=== PATIENT | female | born 1940 | race African-American/Black ===

== ENCOUNTER 2021-12-27 14:52 | Inpatient (IN) | payer MEDICARE ==
[2021-12-27] MEDS ORDERED: Acetaminophen 325 MG TAB PO PRN (17:39)
[2021-12-27] MEDS ORDERED: Electrolyte Replacement Protocol 1 EACH FS SCH (18:00)
[2021-12-27 18:07] VITALS: BMI 15.8
[2021-12-27 18:19] LABS: Hemoglobin 9.9 g/dL (12.0-15.5)
[2021-12-27] MEDS: HYDROcodone/Acetaminophen 5/325 mg Tablet PO PRN (18:20)
[2021-12-27 18:29] LABS: INR-International Normal Ratio 1.9; Prothrombin Time 20.9 sec (9.5-12.1)
[2021-12-27] MEDS ORDERED: Magnesium 2 GM/50 ML 2 GM in Premix Bag 1 BAG IVPB SCH (20:00)
[2021-12-27] MEDS ORDERED: Potassium Chloride 20 MEQ TAB PO SCH (20:00)
[2021-12-27] MEDS: Morphine 4 MG/ML VIAL SLOW IVP PRN (20:07)
[2021-12-28 00:34] LABS: Hemoglobin 9.4 g/dL (12.0-15.5)
[2021-12-28 05:36] LABS: #Basophils 0.1 10x3/uL (0.0-0.2); #Eosinphils 0.3 10x3/uL (0.0-0.5); %Basophils 1.4 % (0.0-2.0); %Lymphocytes 21.9 % (18.0-47.0); %Monocytes 12.3 % (0.0-10.0); Hemoglobin 9.3 g/dL (12.0-15.5); Mean Corpuscular HGB CONC 31.8 g/dL (32.0-36.0); Mean Corpuscular Hemoglobin 29.9 pg (27.0-33.0); Mean Corpuscular Volume 93.9 fl (81.6-98.3); Mean Platelet Volume 10.8 fl (7.4-10.4); Platelet Count 205 10x3/uL (150-450); RBC Distribution Width 18.1 % (11.5-14.5); Red Blood Cell (RBC) Count 3.11 10x6/uL (3.90-5.03); White Blood Cell (WBC) Count 8.4 10x3/uL (3.5-10.5)
[2021-12-28 05:55] LABS: Anion Gap 10 mmol/L (10-20); BUN (Urea Nitrogen) 7 mg/dL (9.8-20.1); Calc. Creatinine Clearance 38 mL/min (70-130); Calcium 9.5 mg/dL (7.8-10.44); Carbon Dioxide 27 mmol/L (23-31); Chloride 109 mmol/L (98-107); Glucose 82 mg/dL (83-110); Phosphorus 2.5 mg/dL (2.3-4.7); Potassium 3.9 mmol/L (3.5-5.1); Sodium 142 mmol/L (136-145)
[2021-12-28] MEDS ORDERED: Magnesium 2 GM/50 ML 2 GM in Premix Bag 1 BAG IVPB SCH (06:30)
[2021-12-28] MEDS ORDERED: Mometasone/Formoterol 200/5 60 PUFF INH SCH (08:15)
[2021-12-28] MEDS ORDERED: Atorvastatin Calcium 10 MG TAB PO SCH ×2 (09:00→21:00)
[2021-12-28] MEDS ORDERED: Atenolol 25 MG TAB PO SCH ×2 (09:00→10:00)
[2021-12-28] MEDS: Furosemide 20 MG TAB PO SCH (09:07)
[2021-12-28] MEDS: Morphine 4 MG/ML VIAL SLOW IVP PRN ×2 (09:14→15:52)
[2021-12-28 14:35] LABS: INR-International Normal Ratio 1.1; Prothrombin Time 12.4 sec (9.5-12.1)
[2021-12-28] MEDS: Mometasone/Formoterol 200/5 60 PUFF INH SCH (18:46)
[2021-12-28] MEDS: Apixaban 2.5 MG TAB PO SCH (20:32)
[2021-12-28] MEDS: HYDROcodone/Acetaminophen 5/325 mg Tablet PO PRN (20:32)
[2021-12-28] MEDS ORDERED: Montelukast Sodium 10 mg Tablet PO SCH (21:00)
[2021-12-28] MEDS ORDERED: Mirtazapine 15 MG TAB PO SCH (21:00)
[2021-12-29 04:33] LABS: INR-International Normal Ratio 1.1; PTT 29.9 sec (22.0-33.0); Prothrombin Time 11.9 sec (9.5-12.1)
[2021-12-29 04:44] LABS: #Basophils 0.1 10x3/uL (0.0-0.2); #Eosinphils 0.1 10x3/uL (0.0-0.5); #Neutrophils 6.6 10x3/uL (1.5-8.4); %Basophils 1.1 % (0.0-2.0); %Eosinophils 0.7 % (0.0-6.0); %Lymphocytes 19.5 % (18.0-47.0); %Monocytes 10.1 % (0.0-10.0); %Neutrophils 68.3 % (40.0-75.0); Hemoglobin 10.4 g/dL (12.0-15.5); Mean Corpuscular Hemoglobin 29.7 pg (27.0-33.0); Mean Corpuscular Volume 92.9 fl (81.6-98.3); Mean Platelet Volume 10.3 fl (7.4-10.4); Platelet Count 212 10x3/uL (150-450); RBC Distribution Width 17.8 % (11.5-14.5); White Blood Cell (WBC) Count 9.7 10x3/uL (3.5-10.5)
[2021-12-29 04:46] LABS: Anion Gap 10 mmol/L (10-20); BUN (Urea Nitrogen) 6 mg/dL (9.8-20.1); Calc. Creatinine Clearance 40 mL/min (70-130); Calcium 9.6 mg/dL (7.8-10.44); Carbon Dioxide 28 mmol/L (23-31); Chloride 107 mmol/L (98-107); Glucose 87 mg/dL (83-110); Phosphorus 2.7 mg/dL (2.3-4.7); Potassium 3.6 mmol/L (3.5-5.1); Sodium 141 mmol/L (136-145)
[2021-12-29] MEDS: Apixaban 2.5 MG TAB PO SCH (08:16)
[2021-12-29] MEDS: Furosemide 20 MG TAB PO SCH (08:16)
[2021-12-29 08:49] VITALS: TEMP 98.5
[2021-12-29] MEDS ORDERED: Aspirin Chewable 81 MG TAB PO SCH (09:00)
[2021-12-29] MEDS: Mometasone/Formoterol 200/5 60 PUFF INH SCH (09:35)
[2021-12-29 10:40] VITALS: BP 160/80
[2021-12-30] MEDS ORDERED: Atenolol 25 MG TAB PO SCH (09:00)
== END 2021-12-29 11:10 | disposition home or self-care (01) | DRG 815 ==
LOC: CSHERS 14:52 → CSHTELE 17:26
PROVIDERS: ADMIT Internal Medicine; ATTEND Family Medicine
DX: D73.5 Infarction of spleen (principal); I74.5 Embolism and thrombosis of iliac artery; I48.21 Permanent atrial fibrillation; K55.1 Chronic vascular disorders of intestine; J44.9 Chronic obstructive pulmonary disease, unspecified; E78.5 Hyperlipidemia, unspecified; I73.9 Peripheral vascular disease, unspecified; F17.210 Nicotine dependence, cigarettes, uncomplicated; I50.9 Heart failure, unspecified; I25.10 Atherosclerotic heart disease of native coronary artery without angina pectoris; J84.10 Pulmonary fibrosis, unspecified; I77.1 Stricture of artery; K76.89 Other specified diseases of liver; G47.00 Insomnia, unspecified; I25.2 Old myocardial infarction; Z86.16 Personal history of COVID-19; Z92.21 Personal history of antineoplastic chemotherapy; Z85.038 Personal history of other malignant neoplasm of large intestine; Z95.1 Presence of aortocoronary bypass graft; Z90.710 Acquired absence of both cervix and uterus; Z88.0 Allergy status to penicillin; Z79.01 Long term (current) use of anticoagulants; Z79.82 Long term (current) use of aspirin; Z79.899 Other long term (current) drug therapy; Z95.5 Presence of coronary angioplasty implant and graft
CPT/HCPCS: 36415; 80048; 83735; 84100; 85025; 85610; 85730; 86850; 86900; 86901; 93005; 93010; J2270; J3475

== ENCOUNTER 2022-03-27 10:34 | Outpatient (CLI) | payer MEDICARE ==
[2022-03-27] MEDS ORDERED: Iopamidol 300 61% 100 ML VIAL FS ONE (15:31)
== END 2022-03-27 10:35 | disposition home or self-care (01) ==
LOC: CSHCT 10:34
PROVIDERS: ATTEND Internal Medicine Hematology & Oncology
DX: R91.1 Solitary pulmonary nodule (principal); K76.9 Liver disease, unspecified; R91.8 Other nonspecific abnormal finding of lung field; I77.810 Thoracic aortic ectasia; I77.811 Abdominal aortic ectasia; Z95.828 Presence of other vascular implants and grafts; E04.2 Nontoxic multinodular goiter; S36.029D Unspecified contusion of spleen, subsequent encounter
CPT/HCPCS: 71260; 74177; 82565

== ENCOUNTER 2022-09-07 22:34 | Inpatient (IN) | payer MEDICARE ==
[2022-09-07 23:20] VITALS: BMI 15.3
[2022-09-07] MEDS ORDERED: Montelukast Sodium 10 mg Tablet PO SCH (23:45)
[2022-09-07] MEDS ORDERED: Atenolol 25 MG TAB PO SCH (23:59)
[2022-09-07] MEDS ORDERED: Diltiazem 125 MG in Sodium Chloride 0.9% 100 ML IVPB SCH (23:59)
[2022-09-08] MEDS ORDERED: Warfarin Sodium 5 MG TAB PO SCH (00:01)
[2022-09-08] MEDS: Pantoprazole 40 MG VIAL IVP SCH (00:16)
[2022-09-08 00:18] LABS: Anion Gap 12 mmol/L (10-20); BUN (Urea Nitrogen) 9 mg/dL (9.8-20.1); Calc. Creatinine Clearance 33 mL/min (70-130); Carbon Dioxide 26 mmol/L (23-31); Chloride 98 mmol/L (98-107); Estimated GFR 73; Glucose 89 mg/dL (83-110); Magnesium 1.5 mg/dL (1.6-2.6); Potassium 3.4 mmol/L (3.5-5.1)
[2022-09-08] MEDS: Clindamycin/D5W 600 MG in Premix Bag 1 BAG IVPB SCH ×3 (00:22→16:07)
[2022-09-08 00:25] LABS: Troponin I 0.043 ng/mL (< 0.028)
[2022-09-08 00:28] LABS: Sodium 133 mmol/L (136-145)
[2022-09-08] MEDS ORDERED: Diltiazem 125 MG in Sodium Chloride 0.9% 100 ML IVPB SCH (01:45)
[2022-09-08] MEDS ORDERED: Magnesium 2 GM/50 ML(in water) 2 GM in Premix Bag 1 BAG IVPB SCH (02:00)
[2022-09-08] MEDS: Diltiazem 125 MG in Sodium Chloride 0.9% 100 ML IVPB SCH ×2 (02:32→16:14)
[2022-09-08] MEDS: Potassium Chloride 20 MEQ in Premix Bag 1 BAG IVPB SCH ×2 (03:07→05:48)
[2022-09-08] MEDS ORDERED: Mometasone/Formoterol 60 PUFF AER INH SCH (06:30)
[2022-09-08] MEDS: Acetaminophen 325 MG TAB PO PRN ×2 (06:50→21:07)
[2022-09-08 07:23] LABS: #Monocytes 0.8 10x3/uL (0.0-1.1); #Neutrophils 4.9 10x3/uL (1.5-8.4); %Basophils 0.3 % (0.0-2.0); %Lymphocytes 12.8 % (18.0-47.0); %Monocytes 11.5 % (0.0-10.0); %Neutrophils 74.9 % (40.0-75.0); Mean Corpuscular HGB CONC 34.3 g/dL (32.0-36.0); Mean Corpuscular Hemoglobin 30.6 pg (27.0-33.0); Mean Corpuscular Volume 89.4 fl (81.6-98.3); Platelet Count 242 10x3/uL (150-450); RBC Distribution Width 15.4 % (11.5-14.5); Red Blood Cell (RBC) Count 3.59 10x6/uL (3.90-5.03); White Blood Cell (WBC) Count 6.5 10x3/uL (3.5-10.5)
[2022-09-08 07:26] LABS: Anion Gap 12 mmol/L (10-20); BUN (Urea Nitrogen) 10 mg/dL (9.8-20.1); Calc. Creatinine Clearance 31 mL/min (70-130); Calcium 9.8 mg/dL (7.8-10.44); Carbon Dioxide 24 mmol/L (23-31); Chloride 100 mmol/L (98-107); Estimated GFR 68; Glucose 82 mg/dL (83-110); Magnesium 2.3 mg/dL (1.6-2.6); Potassium 4.3 mmol/L (3.5-5.1); Sodium 132 mmol/L (136-145)
[2022-09-08 07:31] LABS: Troponin I 0.042 ng/mL (< 0.028)
[2022-09-08 08:20] LABS: INR-International Normal Ratio 1.7; PTT 42.1 sec (22.0-33.0); Prothrombin Time 17.9 sec (9.5-12.1)
[2022-09-08 08:36] LABS: #Monocytes 0.8 10x3/uL (0.0-1.1); #Neutrophils 5.1 10x3/uL (1.5-8.4); %Basophils 0.3 % (0.0-2.0); %Lymphocytes 11.1 % (18.0-47.0); %Monocytes 11.7 % (0.0-10.0); %Neutrophils 76.3 % (40.0-75.0); Hemoglobin 10.7 g/dL (12.0-15.5); Mean Corpuscular HGB CONC 34.2 g/dL (32.0-36.0); Mean Corpuscular Hemoglobin 30.4 pg (27.0-33.0); Mean Corpuscular Volume 88.9 fl (81.6-98.3); Mean Platelet Volume 9.8 fl (7.4-10.4); Platelet Count 235 10x3/uL (150-450); RBC Distribution Width 15.7 % (11.5-14.5); Red Blood Cell (RBC) Count 3.52 10x6/uL (3.90-5.03); White Blood Cell (WBC) Count 6.7 10x3/uL (3.5-10.5)
[2022-09-08] MEDS: Cilostazol 100 MG TAB PO SCH ×2 (08:42→21:05)
[2022-09-08] MEDS: Furosemide 20 MG TAB PO SCH (08:46)
[2022-09-08] MEDS: Atenolol 25 MG TAB PO SCH (08:46)
[2022-09-08] MEDS: Aspirin 81 mg Enteric Coated Tablet PO SCH (08:46)
[2022-09-08 08:56] LABS: Anion Gap 13 mmol/L (10-20); BUN (Urea Nitrogen) 11 mg/dL (9.8-20.1); Calc. Creatinine Clearance 31 mL/min (70-130); Calcium 9.9 mg/dL (7.8-10.44); Carbon Dioxide 23 mmol/L (23-31); Chloride 102 mmol/L (98-107); Estimated GFR 69; Glucose 87 mg/dL (83-110); Magnesium 2.2 mg/dL (1.6-2.6); Potassium 4.7 mmol/L (3.5-5.1); Sodium 133 mmol/L (136-145)
[2022-09-08] MEDS: Mometasone/Formoterol 200/5 60 PUFF INH SCH ×2 (11:10→19:41)
[2022-09-08] MEDS ORDERED: Nicotine 14 MG PATCH TD PRN (13:55)
[2022-09-08] MEDS ORDERED: Calcium Carbonate 500 MG ChewTAB PO SCH (17:00)
[2022-09-08] MEDS: Montelukast Sodium 10 mg Tablet PO SCH (21:06)
[2022-09-08] MEDS: Atorvastatin Calcium 10 MG TAB PO SCH (21:07)
[2022-09-09] MEDS: Clindamycin/D5W 600 MG in Premix Bag 1 BAG IVPB SCH ×3 (00:59→18:07)
[2022-09-09] MEDS: Pantoprazole 40 MG VIAL IVP SCH (01:03)
[2022-09-09 05:01] LABS: INR-International Normal Ratio 2.5; Prothrombin Time 26.1 sec (9.5-12.1)
[2022-09-09 05:04] LABS: Troponin I 0.032 ng/mL (< 0.028)
[2022-09-09] MEDS: Mometasone/Formoterol 200/5 60 PUFF INH SCH ×2 (07:05→19:14)
[2022-09-09] MEDS: Atenolol 25 MG TAB PO SCH (08:25)
[2022-09-09] MEDS: Aspirin 81 mg Enteric Coated Tablet PO SCH (08:25)
[2022-09-09] MEDS: Cilostazol 100 MG TAB PO SCH ×2 (08:26→20:36)
[2022-09-09] MEDS: Furosemide 20 MG TAB PO SCH (08:26)
[2022-09-09] MEDS ORDERED: Metoprolol Tartrate 25 MG TAB PO SCH (09:00)
[2022-09-09] MEDS: Warfarin Sodium 5 MG TAB PO SCH (18:07)
[2022-09-09] MEDS: Acetaminophen 325 MG TAB PO PRN (20:36)
[2022-09-09] MEDS: Atorvastatin Calcium 10 MG TAB PO SCH (20:37)
[2022-09-09] MEDS: Montelukast Sodium 10 mg Tablet PO SCH (20:38)
[2022-09-10] MEDS: Clindamycin/D5W 600 MG in Premix Bag 1 BAG IVPB SCH ×4 (00:17→23:51)
[2022-09-10] MEDS: Atenolol 25 MG TAB PO SCH (07:27)
[2022-09-10] MEDS ORDERED: PROPOFOL 20 ML ONE (08:58)
[2022-09-10] MEDS: Mometasone/Formoterol 200/5 60 PUFF INH SCH ×3 (10:30→19:37)
[2022-09-10] MEDS: Aspirin 81 mg Enteric Coated Tablet PO SCH (11:05)
[2022-09-10] MEDS: Furosemide 20 MG TAB PO SCH (11:05)
[2022-09-10] MEDS: Cilostazol 100 MG TAB PO SCH ×2 (11:06→21:31)
[2022-09-10 12:17] LABS: INR-International Normal Ratio 2.1; Prothrombin Time 21.9 sec (9.5-12.1)
[2022-09-10 12:22] LABS: Hemoglobin 10.8 g/dL (12.0-15.5); Mean Corpuscular HGB CONC 33.9 g/dL (32.0-36.0); Mean Corpuscular Hemoglobin 30.3 pg (27.0-33.0); Mean Corpuscular Volume 89.4 fl (81.6-98.3); Mean Platelet Volume 10.5 fl (7.4-10.4); Platelet Count 224 10x3/uL (150-450); RBC Distribution Width 15.8 % (11.5-14.5); Red Blood Cell (RBC) Count 3.57 10x6/uL (3.90-5.03); White Blood Cell (WBC) Count 7.3 10x3/uL (3.5-10.5)
[2022-09-10 12:24] LABS: Anion Gap 14 mmol/L (10-20); BUN (Urea Nitrogen) 11 mg/dL (9.8-20.1); Calc. Creatinine Clearance 32 mL/min (70-130); Calcium 9.6 mg/dL (7.8-10.44); Carbon Dioxide 24 mmol/L (23-31); Chloride 103 mmol/L (98-107); Estimated GFR 70; Glucose 119 mg/dL (83-110); Potassium 3.5 mmol/L (3.5-5.1); Sodium 137 mmol/L (136-145)
[2022-09-10 13:28] LABS: Band 9 % (5-11); Lymphocytes 13 % (21-51); Monocytes 7 % (0-10); Neutrophil 68 % (42-75); Reactive Lymphocytes 3 % (0-10)
[2022-09-10 13:30] LABS: Anisocytosis SLIGHT = 6-15 cells (100X) (0-5/hpf); Macrocytosis SLIGHT = 6-15 cells (100X) (0-5/hpf); Microcytosis SLIGHT = 6-15 cells (100X) (0-5/hpf); Ovalocytes SLIGHT = 2-5 cells (100X) (0-1/hpf)
[2022-09-10 13:32] LABS: Giant Platelets SLIGHT; Large Platelets SLIGHT; Platelet Morphology Comment Appears Adequate
[2022-09-10 13:34] LABS: MDiff Complete? YES
[2022-09-10] MEDS: Warfarin Sodium 5 MG TAB PO SCH (16:38)
[2022-09-10] MEDS: Atorvastatin Calcium 10 MG TAB PO SCH (21:30)
[2022-09-10] MEDS: Montelukast Sodium 10 mg Tablet PO SCH (21:31)
[2022-09-11 06:13] LABS: Hemoglobin 10.7 g/dL (12.0-15.5); Mean Corpuscular HGB CONC 34.2 g/dL (32.0-36.0); Mean Corpuscular Hemoglobin 30.1 pg (27.0-33.0); Mean Corpuscular Volume 88.2 fl (81.6-98.3); Platelet Count 220 10x3/uL (150-450); RBC Distribution Width 15.7 % (11.5-14.5); Red Blood Cell (RBC) Count 3.55 10x6/uL (3.90-5.03); White Blood Cell (WBC) Count 5.7 10x3/uL (3.5-10.5)
[2022-09-11 06:40] LABS: INR-International Normal Ratio 2.5; Prothrombin Time 25.9 sec (9.5-12.1)
[2022-09-11 07:04] LABS: MDiff Complete? YES; Platelet Morphology Comment Appears Adequate
[2022-09-11 07:09] LABS: Band 1 % (5-11); Lymphocytes 30 % (21-51); Metamyelocyte 1 % (0-0); Monocytes 8 % (0-10); Neutrophil 59 % (42-75); Reactive Lymphocytes 1 % (0-10)
[2022-09-11] MEDS: Mometasone/Formoterol 200/5 60 PUFF INH SCH (07:10)
[2022-09-11 07:31] LABS: Anion Gap 13 mmol/L (10-20); BUN (Urea Nitrogen) 11 mg/dL (9.8-20.1); Calc. Creatinine Clearance 28 mL/min (70-130); Calcium 9.2 mg/dL (7.8-10.44); Carbon Dioxide 25 mmol/L (23-31); Chloride 103 mmol/L (98-107); Estimated GFR 60; Glucose 81 mg/dL (83-110); Potassium 3.2 mmol/L (3.5-5.1); Sodium 138 mmol/L (136-145)
[2022-09-11 08:09] VITALS: TEMP 98.1
[2022-09-11] MEDS ORDERED: Potassium Chloride 20 MEQ TAB PO SCH (09:00)
[2022-09-11] MEDS: Furosemide 20 MG TAB PO SCH (09:16)
[2022-09-11] MEDS: Clindamycin/D5W 600 MG in Premix Bag 1 BAG IVPB SCH (09:16)
[2022-09-11] MEDS: Aspirin 81 mg Enteric Coated Tablet PO SCH (09:17)
[2022-09-11] MEDS: Atenolol 25 MG TAB PO SCH (09:17)
[2022-09-11] MEDS: Cilostazol 100 MG TAB PO SCH (10:53)
[2022-09-11 13:43] VITALS: BP 102/57
== END 2022-09-11 12:23 | disposition home or self-care (01) | DRG 309 ==
LOC: CSHTELE 22:34
PROVIDERS: ADMIT Family Medicine; ATTEND Hospitalist
PROC: 0DJ08ZZ Inspection of Upper Intestinal Tract, Via Natural or Artificial Opening Endoscopic (ICD-10-PCS; principal; 2022-09-10)
DX: I48.21 Permanent atrial fibrillation (principal); I50.22 Chronic systolic (congestive) heart failure; K22.10 Ulcer of esophagus without bleeding; Z20.822 Contact with and (suspected) exposure to COVID-19; K31.9 Disease of stomach and duodenum, unspecified; Z66 Do not resuscitate; J44.9 Chronic obstructive pulmonary disease, unspecified; F17.210 Nicotine dependence, cigarettes, uncomplicated; I42.2 Other hypertrophic cardiomyopathy; I25.10 Atherosclerotic heart disease of native coronary artery without angina pectoris; R13.19 Other dysphagia; E87.6 Hypokalemia; K21.00 Gastro-esophageal reflux disease with esophagitis, without bleeding; K04.7 Periapical abscess without sinus; I48.92 Unspecified atrial flutter; E83.42 Hypomagnesemia; I73.9 Peripheral vascular disease, unspecified; Z79.82 Long term (current) use of aspirin; Z88.0 Allergy status to penicillin; Z79.899 Other long term (current) drug therapy; Z79.01 Long term (current) use of anticoagulants; Z95.5 Presence of coronary angioplasty implant and graft; Z85.038 Personal history of other malignant neoplasm of large intestine; Z92.21 Personal history of antineoplastic chemotherapy; Z90.710 Acquired absence of both cervix and uterus; Z82.49 Family history of ischemic heart disease and other diseases of the circulatory system; Z71.6 Tobacco abuse counseling
CPT/HCPCS: 36415; 80048; 83735; 84484; 85025; 85610; 85730; 93005; 93010; 93306; 94664; 94760; C9113; J2704; J3475; J3480; J3490; U0003; U0005

== ENCOUNTER 2023-04-27 22:07 | Inpatient (IN) | payer MEDICARE ==
[2023-04-27] MEDS ORDERED: HYDROcodone/Acetaminophen 5/325 mg Tablet PO PRN (22:40)
[2023-04-27] MEDS ORDERED: Guaifenesin DM 100-10/5 ML UDCUP PO PRN (22:40)
[2023-04-27] MEDS ORDERED: Ondansetron PF 4 MG/2 ML Vial IVP PRN (22:40)
[2023-04-27] MEDS ORDERED: Calcium Carbonate 500 MG ChewTAB PO PRN (22:40)
[2023-04-27] MEDS ORDERED: Ipratropium/Albuterol 3 ML NEB NEB PRN (22:45)
[2023-04-27] MEDS ORDERED: Montelukast Sodium 10 mg Tablet PO SCH (23:00)
[2023-04-27] MEDS ORDERED: Mirtazapine 15 MG TAB PO SCH (23:00)
[2023-04-27] MEDS ORDERED: cefTRIAXone\\ROCEPHIN 1 GM in Sodium Chloride 0.9% 100 ML IVPB SCH (23:00)
[2023-04-27] MEDS ORDERED: traMADol HCl 50 MG TAB PO SCH (23:00)
[2023-04-27 23:38] LABS: INR-International Normal Ratio 2.5; PTT 48.8 sec (22.0-33.0); Prothrombin Time 26.9 sec (9.5-12.1)
[2023-04-28 00:03] LABS: CKMB 0.7 ng/mL (0-6.6)
[2023-04-28 00:20] VITALS: BMI 17.1
[2023-04-28] MEDS: Nicotine 14 MG PATCH TD SCH ×2 (00:31→23:20)
[2023-04-28] MEDS: Azithromycin 500 MG in Sodium Chloride 0.9% 250 ML 250 ML IVPB SCH ×2 (00:32→23:20)
[2023-04-28] MEDS: Potassium Chloride 20 MEQ TAB PO SCH ×3 (00:33→08:00)
[2023-04-28 02:46] LABS: Legionella Urinary Ag Negative (Negative); Strep pneumo Urine Ag NEGATIVE (NEGATIVE)
[2023-04-28 03:05] LABS: #Eosinphils 0.1 10x3/uL (0.0-0.5); #Monocytes 0.9 10x3/uL (0.0-1.1); #Neutrophils 7.9 10x3/uL (1.5-8.4); %Basophils 0.3 % (0.0-2.0); %Eosinophils 0.6 % (0.0-6.0); %Lymphocytes 6.6 % (18.0-47.0); %Monocytes 9.1 % (0.0-10.0); Mean Corpuscular HGB CONC 33.1 g/dL (32.0-36.0); Mean Corpuscular Hemoglobin 30.3 pg (27.0-33.0); Mean Corpuscular Volume 91.5 fl (81.6-98.3); Mean Platelet Volume 10.4 fl (7.4-10.4); Platelet Count 271 10x3/uL (150-450); RBC Distribution Width 14.7 % (11.5-14.5); Red Blood Cell (RBC) Count 3.63 10x6/uL (3.90-5.03); White Blood Cell (WBC) Count 9.5 10x3/uL (3.5-10.5)
[2023-04-28 03:37] LABS: Anion Gap 13 mmol/L (10-20); BUN (Urea Nitrogen) 11 mg/dL (9.8-20.1); Calc. Creatinine Clearance 32 mL/min (70-130); Calcium 9.7 mg/dL (7.8-10.44); Carbon Dioxide 25 mmol/L (23-31); Chloride 98 mmol/L (98-107); Estimated GFR 63; Glucose 106 mg/dL (83-110); Magnesium 1.6 mg/dL (1.6-2.6); Potassium 2.9 mmol/L (3.5-5.1); Sodium 133 mmol/L (136-145)
[2023-04-28 04:13] LABS: CKMB 0.7 ng/mL (0-6.6)
[2023-04-28 04:53] LABS: Free T4 (Free Thyroxine) 1.34 ng/dL (0.70-1.48); Thyroid Stimulating Hormone 0.2686 uIU/mL (0.35-4.94)
[2023-04-28] MEDS: Cilostazol 100 MG TAB PO SCH ×2 (07:30→16:25)
[2023-04-28] MEDS: Mometasone/Formoterol 200/5 60 PUFF INH SCH ×2 (07:50→19:04)
[2023-04-28] MEDS ORDERED: Warfarin Sodium 5 MG TAB PO SCH (09:00)
[2023-04-28] MEDS: Aspirin Chewable 81 MG TAB PO SCH (09:04)
[2023-04-28] MEDS: Atorvastatin Calcium 10 MG TAB PO SCH (09:04)
[2023-04-28] MEDS: Benzonatate 100 MG CAP PO SCH ×3 (09:04→23:19)
[2023-04-28] MEDS: Atenolol 25 MG TAB PO SCH (09:04)
[2023-04-28] MEDS: Diltiazem HCl CD 300 mg Capsule PO SCH (09:05)
[2023-04-28] MEDS: Furosemide 20 MG TAB PO SCH (09:06)
[2023-04-28] MEDS: Acetaminophen 325 MG TAB PO PRN (12:11)
[2023-04-28 12:24] LABS: Anion Gap 13 mmol/L (10-20); BUN (Urea Nitrogen) 8 mg/dL (9.8-20.1); Calc. Creatinine Clearance 35 mL/min (70-130); Calcium 9.6 mg/dL (7.8-10.44); Carbon Dioxide 23 mmol/L (23-31); Chloride 100 mmol/L (98-107); Estimated GFR 71; Glucose 108 mg/dL (83-110); Potassium 3.6 mmol/L (3.5-5.1); Sodium 132 mmol/L (136-145)
[2023-04-28] MEDS: Warfarin Sodium 5 MG TAB PO SCH (16:25)
[2023-04-28] MEDS: Mirtazapine 15 MG TAB PO SCH (23:19)
[2023-04-28] MEDS: Montelukast Sodium 10 mg Tablet PO SCH (23:19)
[2023-04-28] MEDS: cefTRIAXone\\ROCEPHIN 2 GM in Sodium Chloride 0.9% 100 ML IVPB SCH (23:19)
[2023-04-29] MEDS: Potassium Chloride 20 MEQ TAB PO SCH (04:58)
[2023-04-29] MEDS: Acetaminophen 325 MG TAB PO PRN ×2 (05:34→20:24)
[2023-04-29 06:10] LABS: INR-International Normal Ratio 2.1; Prothrombin Time 22.5 sec (9.5-12.1)
[2023-04-29] MEDS: Cilostazol 100 MG TAB PO SCH ×2 (08:25→16:30)
[2023-04-29] MEDS: Mometasone/Formoterol 200/5 60 PUFF INH SCH ×2 (08:25→19:13)
[2023-04-29] MEDS ORDERED: Sodium Chloride 0.9% 1,000 ML IV SCH (09:00)
[2023-04-29] MEDS: Atenolol 25 MG TAB PO SCH (09:48)
[2023-04-29] MEDS: Aspirin Chewable 81 MG TAB PO SCH (09:48)
[2023-04-29] MEDS: Diltiazem HCl CD 300 mg Capsule PO SCH (09:49)
[2023-04-29] MEDS: Atorvastatin Calcium 10 MG TAB PO SCH (09:49)
[2023-04-29] MEDS: Benzonatate 100 MG CAP PO SCH ×3 (09:50→20:27)
[2023-04-29] MEDS: Furosemide 20 MG TAB PO SCH (09:50)
[2023-04-29] MEDS: Warfarin Sodium 5 MG TAB PO SCH (17:06)
[2023-04-29] MEDS ORDERED: Polyethylene Glycol 3350 17 GM Packet PO PRN (19:02)
[2023-04-29] MEDS: Montelukast Sodium 10 mg Tablet PO SCH (20:26)
[2023-04-29] MEDS: cefTRIAXone\\ROCEPHIN 2 GM in Sodium Chloride 0.9% 100 ML IVPB SCH (20:26)
[2023-04-29] MEDS: Mirtazapine 15 MG TAB PO SCH (20:26)
[2023-04-29] MEDS: Nicotine 14 MG PATCH TD SCH (20:29)
[2023-04-29] MEDS ORDERED: Furosemide 20 MG/2 ML VIAL SLOW IVP SCH (23:45)
[2023-04-30] MEDS ORDERED: methylPREDNISolone Sod Succ/PF 125 MG/2 ML VIAL IVP SCH (00:30)
[2023-04-30] MEDS ORDERED: Digoxin 0.5 MG/2 ML AMP SLOW IVP SCH ×2 (00:30→05:45)
[2023-04-30] MEDS: Azithromycin 500 MG in Sodium Chloride 0.9% 250 ML 250 ML IVPB SCH ×2 (00:41→23:05)
[2023-04-30 04:46] LABS: #Monocytes 0.2 10x3/uL (0.0-1.1); #Neutrophils 9.3 10x3/uL (1.5-8.4); %Basophils 0.2 % (0.0-2.0); %Lymphocytes 2.8 % (18.0-47.0); %Monocytes 2.2 % (0.0-10.0); %Neutrophils 94.2 % (40.0-75.0); Hemoglobin 12.1 g/dL (12.0-15.5); Mean Corpuscular HGB CONC 33.8 g/dL (32.0-36.0); Mean Corpuscular Volume 88.8 fl (81.6-98.3); Mean Platelet Volume 10.1 fl (7.4-10.4); Platelet Count 272 10x3/uL (150-450); RBC Distribution Width 14.4 % (11.5-14.5); Red Blood Cell (RBC) Count 4.03 10x6/uL (3.90-5.03); White Blood Cell (WBC) Count 9.9 10x3/uL (3.5-10.5)
[2023-04-30 04:50] LABS: INR-International Normal Ratio 2.4; Prothrombin Time 25.1 sec (9.5-12.1)
[2023-04-30 04:57] LABS: Anion Gap 13 mmol/L (10-20); BUN (Urea Nitrogen) 10 mg/dL (9.8-20.1); Calc. Creatinine Clearance 35 mL/min (70-130); Calcium 9.5 mg/dL (7.8-10.44); Carbon Dioxide 23 mmol/L (23-31); Chloride 104 mmol/L (98-107); Estimated GFR 70; Glucose 131 mg/dL (83-110); Magnesium 1.5 mg/dL (1.6-2.6); Potassium 3.7 mmol/L (3.5-5.1); Sodium 136 mmol/L (136-145)
[2023-04-30] MEDS: Senokot S 8.6-50 MG TAB PO PRN (06:15)
[2023-04-30] MEDS ORDERED: Furosemide 20 MG/2 ML VIAL SLOW IVP SCH (06:15)
[2023-04-30 07:21] LABS: SARS-CoV-2 NAA Rapid Test Not Detected (NotDetected)
[2023-04-30] MEDS: Atorvastatin Calcium 10 MG TAB PO SCH (08:11)
[2023-04-30] MEDS: Furosemide 20 MG TAB PO SCH (08:11)
[2023-04-30] MEDS: Atenolol 25 MG TAB PO SCH (08:11)
[2023-04-30] MEDS: Aspirin Chewable 81 MG TAB PO SCH (08:11)
[2023-04-30] MEDS: Benzonatate 100 MG CAP PO SCH ×3 (08:12→20:59)
[2023-04-30] MEDS: Cilostazol 100 MG TAB PO SCH ×2 (08:15→15:25)
[2023-04-30] MEDS: Mometasone/Formoterol 200/5 60 PUFF INH SCH ×2 (08:30→19:35)
[2023-04-30] MEDS ORDERED: Furosemide 40 MG/4 ML VIAL SLOW IVP SCH (09:00)
[2023-04-30] MEDS ORDERED: Magnesium 2 GM/50 ML(in water) 2 GM in Premix Bag 1 BAG IVPB SCH (15:00)
[2023-04-30] MEDS: methylPREDNISolone Sod Succ 40 MG VIAL IVP SCH (15:25)
[2023-04-30] MEDS: Warfarin Sodium 5 MG TAB PO SCH (17:17)
[2023-04-30] MEDS: Acetaminophen 325 MG TAB PO PRN (17:19)
[2023-04-30] MEDS: Montelukast Sodium 10 mg Tablet PO SCH (20:58)
[2023-04-30] MEDS: cefTRIAXone\\ROCEPHIN 2 GM in Sodium Chloride 0.9% 100 ML IVPB SCH (20:58)
[2023-04-30] MEDS: Mirtazapine 15 MG TAB PO SCH (20:59)
[2023-04-30] MEDS: Nicotine 14 MG PATCH TD SCH (23:05)
[2023-05-01] MEDS: methylPREDNISolone Sod Succ 40 MG VIAL IVP SCH ×2 (03:13→14:29)
[2023-05-01 04:33] LABS: #Monocytes 0.4 10x3/uL (0.0-1.1); #Neutrophils 8.6 10x3/uL (1.5-8.4); %Basophils 0.1 % (0.0-2.0); %Lymphocytes 5.9 % (18.0-47.0); %Neutrophils 89.3 % (40.0-75.0); Hemoglobin 10.7 g/dL (12.0-15.5); Mean Corpuscular HGB CONC 33.8 g/dL (32.0-36.0); Mean Corpuscular Hemoglobin 29.6 pg (27.0-33.0); Mean Corpuscular Volume 87.6 fl (81.6-98.3); Mean Platelet Volume 10.4 fl (7.4-10.4); Platelet Count 280 10x3/uL (150-450); RBC Distribution Width 14.3 % (11.5-14.5); Red Blood Cell (RBC) Count 3.62 10x6/uL (3.90-5.03); White Blood Cell (WBC) Count 9.7 10x3/uL (3.5-10.5)
[2023-05-01 04:35] LABS: Anion Gap 11 mmol/L (10-20); BUN (Urea Nitrogen) 15 mg/dL (9.8-20.1); Calc. Creatinine Clearance 33 mL/min (70-130); Calcium 9.8 mg/dL (7.8-10.44); Carbon Dioxide 25 mmol/L (23-31); Chloride 103 mmol/L (98-107); Estimated GFR 66; Glucose 122 mg/dL (83-110); Magnesium 2.2 mg/dL (1.6-2.6); Potassium 3.3 mmol/L (3.5-5.1); Sodium 136 mmol/L (136-145)
[2023-05-01 04:38] LABS: INR-International Normal Ratio 4.8
[2023-05-01] MEDS: Mometasone/Formoterol 200/5 60 PUFF INH SCH ×2 (06:35→18:22)
[2023-05-01 07:12] LABS: INR-International Normal Ratio 5.8; Prothrombin Time 60.1 sec (9.5-12.1)
[2023-05-01] MEDS: Benzonatate 100 MG CAP PO SCH ×3 (08:43→21:13)
[2023-05-01] MEDS: Aspirin Chewable 81 MG TAB PO SCH (08:43)
[2023-05-01] MEDS: Furosemide 40 MG/4 ML VIAL SLOW IVP SCH (08:43)
[2023-05-01] MEDS: Atenolol 25 MG TAB PO SCH (08:43)
[2023-05-01] MEDS: Atorvastatin Calcium 10 MG TAB PO SCH (08:43)
[2023-05-01] MEDS: Senokot S 8.6-50 MG TAB PO PRN (08:49)
[2023-05-01] MEDS: Cilostazol 100 MG TAB PO SCH ×2 (08:49→17:39)
[2023-05-01] MEDS ORDERED: Mineral Oil ENEMA PR PRN (15:04)
[2023-05-01] MEDS ORDERED: Warfarin Sodium 5 MG TAB PO SCH (17:00)
[2023-05-01] MEDS: Mirtazapine 15 MG TAB PO SCH (21:11)
[2023-05-01] MEDS: cefTRIAXone\\ROCEPHIN 2 GM in Sodium Chloride 0.9% 100 ML IVPB SCH (21:11)
[2023-05-01] MEDS: Montelukast Sodium 10 mg Tablet PO SCH (21:12)
[2023-05-01] MEDS: Azithromycin 500 MG in Sodium Chloride 0.9% 250 ML 250 ML IVPB SCH (23:59)
[2023-05-01] MEDS: Nicotine 14 MG PATCH TD SCH (23:59)
[2023-05-02] MEDS: methylPREDNISolone Sod Succ 40 MG VIAL IVP SCH ×2 (03:24→15:27)
[2023-05-02 04:56] LABS: Mean Corpuscular HGB CONC 33.6 g/dL (32.0-36.0); Mean Corpuscular Hemoglobin 29.7 pg (27.0-33.0); Mean Corpuscular Volume 88.4 fl (81.6-98.3); Mean Platelet Volume 10.5 fl (7.4-10.4); Platelet Count 329 10x3/uL (150-450); RBC Distribution Width 14.6 % (11.5-14.5); White Blood Cell (WBC) Count 10.9 10x3/uL (3.5-10.5)
[2023-05-02 05:01] LABS: Anion Gap 14 mmol/L (10-20); BUN (Urea Nitrogen) 19 mg/dL (9.8-20.1); Calc. Creatinine Clearance 33 mL/min (70-130); Carbon Dioxide 25 mmol/L (23-31); Chloride 104 mmol/L (98-107); Estimated GFR 66; Glucose 136 mg/dL (83-110); Magnesium 1.9 mg/dL (1.6-2.6); Sodium 140 mmol/L (136-145)
[2023-05-02 05:46] LABS: Prothrombin Time 82.9 sec (9.5-12.1)
[2023-05-02 06:07] LABS: Lymphocytes 7 % (21-51); Monocytes 1 % (0-10)
[2023-05-02 06:09] LABS: Hypochromia SLIGHT = 6-15 cells (100X) (0-5/hpf); Microcytosis SLIGHT = 6-15 cells (100X) (0-5/hpf); Ovalocytes SLIGHT = 2-5 cells (100X) (0-1/hpf); Platelet Adequacy Comment Appears Adequate; Schistocytes SLIGHT = 2-5 cells (100X) (0-1/hpf)
[2023-05-02] MEDS: Mometasone/Formoterol 200/5 60 PUFF INH SCH ×2 (07:00→20:01)
[2023-05-02] MEDS: Cilostazol 100 MG TAB PO SCH ×2 (07:32→16:28)
[2023-05-02] MEDS: Furosemide 40 MG/4 ML VIAL SLOW IVP SCH (09:32)
[2023-05-02] MEDS: Aspirin Chewable 81 MG TAB PO SCH (09:32)
[2023-05-02] MEDS: Benzonatate 100 MG CAP PO SCH ×3 (09:33→20:12)
[2023-05-02] MEDS: Atorvastatin Calcium 10 MG TAB PO SCH (09:33)
[2023-05-02] MEDS: Atenolol 25 MG TAB PO SCH (09:33)
[2023-05-02] MEDS: Potassium Chloride 20 MEQ TAB PO SCH (17:18)
[2023-05-02] MEDS: Mirtazapine 15 MG TAB PO SCH (20:12)
[2023-05-02] MEDS: cefTRIAXone\\ROCEPHIN 2 GM in Sodium Chloride 0.9% 100 ML IVPB SCH (20:12)
[2023-05-02] MEDS: Montelukast Sodium 10 mg Tablet PO SCH (20:12)
[2023-05-02] MEDS: Nicotine 14 MG PATCH TD SCH (23:59)
[2023-05-03] MEDS: Azithromycin 500 MG in Sodium Chloride 0.9% 250 ML 250 ML IVPB SCH
[2023-05-03] MEDS: Potassium Chloride 20 MEQ TAB PO SCH
[2023-05-03 06:11] LABS: Anion Gap 14 mmol/L (10-20); BUN (Urea Nitrogen) 21 mg/dL (9.8-20.1); Calc. Creatinine Clearance 35 mL/min (70-130); Calcium 9.9 mg/dL (7.8-10.44); Carbon Dioxide 28 mmol/L (23-31); Chloride 106 mmol/L (98-107); Estimated GFR 70; Glucose 110 mg/dL (83-110); Potassium 3.8 mmol/L (3.5-5.1); Sodium 144 mmol/L (136-145)
[2023-05-03 06:15] LABS: INR-International Normal Ratio 5.9; Prothrombin Time 61.3 sec (9.5-12.1)
[2023-05-03] MEDS: Furosemide 40 MG/4 ML VIAL SLOW IVP SCH (08:16)
[2023-05-03] MEDS: Cilostazol 100 MG TAB PO SCH ×2 (08:16→16:30)
[2023-05-03] MEDS: predniSONE 20 MG TAB PO SCH (08:17)
[2023-05-03] MEDS: Aspirin Chewable 81 MG TAB PO SCH (08:18)
[2023-05-03] MEDS: Benzonatate 100 MG CAP PO SCH ×3 (08:18→20:50)
[2023-05-03] MEDS: Atorvastatin Calcium 10 MG TAB PO SCH (08:18)
[2023-05-03] MEDS: Atenolol 25 MG TAB PO SCH (08:18)
[2023-05-03] MEDS: Mometasone/Formoterol 200/5 60 PUFF INH SCH ×2 (08:25→19:06)
[2023-05-03] MEDS ORDERED: Iopamidol 300 61% 100 ML VIAL FS ONE (11:07)
[2023-05-03 15:16] LABS: Hemoglobin 11.9 g/dL (12.0-15.5); Mean Corpuscular Hemoglobin 29.4 pg (27.0-33.0); Mean Corpuscular Volume 91.9 fl (81.6-98.3); Mean Platelet Volume 10.3 fl (7.4-10.4); Platelet Count 417 10x3/uL (150-450); Red Blood Cell (RBC) Count 4.05 10x6/uL (3.90-5.03); White Blood Cell (WBC) Count 14.9 10x3/uL (3.5-10.5)
[2023-05-03 15:36] LABS: Band 7 % (5-11); Lymphocytes 4 % (21-51); Monocytes 3 % (0-10); Nucleated RBC (Manual Ct) 1 % (0); Reactive Lymphocytes 5 % (0-10)
[2023-05-03 15:43] LABS: Anisocytosis SLIGHT = 6-15 cells (100X) (0-5/hpf); Neutrophil 81 % (42-75)
[2023-05-03 15:44] LABS: Microcytosis SLIGHT = 6-15 cells (100X) (0-5/hpf)
[2023-05-03 15:45] LABS: Large Platelets SLIGHT (None Seen); Platelet Adequacy Comment Platelets Increased
[2023-05-03 15:49] LABS: MDiff Complete? YES
[2023-05-03] MEDS: Mirtazapine 15 MG TAB PO SCH (20:50)
[2023-05-03] MEDS: cefTRIAXone\\ROCEPHIN 2 GM in Sodium Chloride 0.9% 100 ML IVPB SCH (20:50)
[2023-05-03] MEDS: Montelukast Sodium 10 mg Tablet PO SCH (20:50)
[2023-05-03] MEDS: Nicotine 14 MG PATCH TD SCH (23:40)
[2023-05-04 05:32] LABS: #Eosinphils 0.1 10x3/uL (0.0-0.5); #Monocytes 0.6 10x3/uL (0.0-1.1); #Neutrophils 10.7 10x3/uL (1.5-8.4); %Basophils 0.2 % (0.0-2.0); %Eosinophils 0.7 % (0.0-6.0); %Lymphocytes 9.1 % (18.0-47.0); %Monocytes 4.8 % (0.0-10.0); %Neutrophils 84.6 % (40.0-75.0); Hemoglobin 10.4 g/dL (12.0-15.5); Mean Corpuscular HGB CONC 33.1 g/dL (32.0-36.0); Mean Corpuscular Hemoglobin 29.9 pg (27.0-33.0); Mean Corpuscular Volume 90.2 fl (81.6-98.3); Mean Platelet Volume 9.6 fl (7.4-10.4); Platelet Count 342 10x3/uL (150-450); RBC Distribution Width 14.9 % (11.5-14.5); Red Blood Cell (RBC) Count 3.48 10x6/uL (3.90-5.03); White Blood Cell (WBC) Count 12.6 10x3/uL (3.5-10.5)
[2023-05-04 05:44] LABS: Anion Gap 11 mmol/L (10-20); BUN (Urea Nitrogen) 21 mg/dL (9.8-20.1); Calc. Creatinine Clearance 38 mL/min (70-130); Calcium 10.9 mg/dL (7.8-10.44); Carbon Dioxide 31 mmol/L (23-31); Chloride 105 mmol/L (98-107); Estimated GFR 77; Glucose 112 mg/dL (83-110); Potassium 3.2 mmol/L (3.5-5.1); Sodium 144 mmol/L (136-145)
[2023-05-04 05:50] LABS: Prothrombin Time 42.5 sec (9.5-12.1)
[2023-05-04] MEDS: Mometasone/Formoterol 200/5 60 PUFF INH SCH ×2 (08:15→19:03)
[2023-05-04] MEDS: Furosemide 40 MG/4 ML VIAL SLOW IVP SCH (08:26)
[2023-05-04] MEDS: Atenolol 25 MG TAB PO SCH (08:26)
[2023-05-04] MEDS: Cilostazol 100 MG TAB PO SCH ×2 (08:27→16:10)
[2023-05-04] MEDS: Benzonatate 100 MG CAP PO SCH ×3 (08:28→21:16)
[2023-05-04] MEDS: predniSONE 20 MG TAB PO SCH (08:28)
[2023-05-04] MEDS: Aspirin Chewable 81 MG TAB PO SCH (08:28)
[2023-05-04] MEDS: Atorvastatin Calcium 10 MG TAB PO SCH (08:28)
[2023-05-04] MEDS: Senokot S 8.6-50 MG TAB PO PRN (08:37)
[2023-05-04] MEDS: Ipratropium/Albuterol 3 ML NEB IPPB SCH ×2 (15:30→18:58)
[2023-05-04] MEDS: Mirtazapine 15 MG TAB PO SCH (21:15)
[2023-05-04] MEDS: Montelukast Sodium 10 mg Tablet PO SCH (21:16)
[2023-05-05] MEDS: Nicotine 14 MG PATCH TD SCH ×2 (00:26→23:00)
[2023-05-05] MEDS: Ipratropium/Albuterol 3 ML NEB IPPB SCH ×4 (00:33→18:49)
[2023-05-05 06:11] LABS: #Monocytes 0.7 10x3/uL (0.0-1.1); #Neutrophils 8.4 10x3/uL (1.5-8.4); %Basophils 0.1 % (0.0-2.0); %Lymphocytes 10.6 % (18.0-47.0); %Monocytes 6.5 % (0.0-10.0); %Neutrophils 82.2 % (40.0-75.0); Hemoglobin 9.8 g/dL (12.0-15.5); Mean Corpuscular HGB CONC 32.8 g/dL (32.0-36.0); Mean Corpuscular Hemoglobin 29.4 pg (27.0-33.0); Mean Corpuscular Volume 89.8 fl (81.6-98.3); Mean Platelet Volume 9.8 fl (7.4-10.4); Platelet Count 321 10x3/uL (150-450); RBC Distribution Width 14.6 % (11.5-14.5); Red Blood Cell (RBC) Count 3.33 10x6/uL (3.90-5.03); White Blood Cell (WBC) Count 10.2 10x3/uL (3.5-10.5)
[2023-05-05 06:20] LABS: Anion Gap 11 mmol/L (10-20); BUN (Urea Nitrogen) 21 mg/dL (9.8-20.1); Calc. Creatinine Clearance 35 mL/min (70-130); Calcium 9.5 mg/dL (7.8-10.44); Carbon Dioxide 35 mmol/L (23-31); Chloride 100 mmol/L (98-107); Estimated GFR 69; Glucose 94 mg/dL (83-110); Potassium 3.2 mmol/L (3.5-5.1); Sodium 143 mmol/L (136-145)
[2023-05-05 06:27] LABS: INR-International Normal Ratio 2.9; Prothrombin Time 30.4 sec (9.5-12.1)
[2023-05-05] MEDS: Benzonatate 100 MG CAP PO SCH ×3 (08:25→21:26)
[2023-05-05] MEDS: Atorvastatin Calcium 10 MG TAB PO SCH (08:25)
[2023-05-05] MEDS: Cilostazol 100 MG TAB PO SCH ×2 (08:25→15:46)
[2023-05-05] MEDS: Atenolol 25 MG TAB PO SCH ×2 (08:25→21:25)
[2023-05-05] MEDS: predniSONE 20 MG TAB PO SCH (08:25)
[2023-05-05] MEDS: Aspirin Chewable 81 MG TAB PO SCH (08:25)
[2023-05-05] MEDS: Senokot S 8.6-50 MG TAB PO PRN (08:26)
[2023-05-05] MEDS: Furosemide 40 MG/4 ML VIAL SLOW IVP SCH (08:26)
[2023-05-05] MEDS: Mometasone/Formoterol 200/5 60 PUFF INH SCH ×2 (09:25→18:53)
[2023-05-05] MEDS ORDERED: Furosemide 40 MG/4 ML VIAL SLOW IVP SCH (14:00)
[2023-05-05] MEDS: Potassium Chloride 20 MEQ TAB PO SCH ×2 (15:46→21:28)
[2023-05-05] MEDS: Warfarin Sodium 2.5 MG TAB PO SCH (17:37)
[2023-05-05] MEDS: Montelukast Sodium 10 mg Tablet PO SCH (21:25)
[2023-05-05] MEDS: Mirtazapine 15 MG TAB PO SCH (21:25)
[2023-05-06] MEDS: Ipratropium/Albuterol 3 ML NEB IPPB SCH ×3 (00:20→13:45)
[2023-05-06 05:37] LABS: #Neutrophils 10.4 10x3/uL (1.5-8.4); %Basophils 0.1 % (0.0-2.0); %Eosinophils 0.2 % (0.0-6.0); %Lymphocytes 13.2 % (18.0-47.0); %Monocytes 7.4 % (0.0-10.0); %Neutrophils 78.3 % (40.0-75.0); Hemoglobin 9.8 g/dL (12.0-15.5); Mean Corpuscular HGB CONC 32.7 g/dL (32.0-36.0); Mean Corpuscular Hemoglobin 29.5 pg (27.0-33.0); Mean Corpuscular Volume 90.4 fl (81.6-98.3); Platelet Count 302 10x3/uL (150-450); RBC Distribution Width 14.7 % (11.5-14.5); Red Blood Cell (RBC) Count 3.32 10x6/uL (3.90-5.03); White Blood Cell (WBC) Count 13.3 10x3/uL (3.5-10.5)
[2023-05-06 05:44] LABS: Prothrombin Time 21.2 sec (9.5-12.1)
[2023-05-06 05:51] LABS: Anion Gap 10 mmol/L (10-20); BUN (Urea Nitrogen) 22 mg/dL (9.8-20.1); Calc. Creatinine Clearance 33 mL/min (70-130); Calcium 9.2 mg/dL (7.8-10.44); Carbon Dioxide 35 mmol/L (23-31); Chloride 103 mmol/L (98-107); Estimated GFR 66; Glucose 86 mg/dL (83-110); Potassium 3.8 mmol/L (3.5-5.1); Sodium 144 mmol/L (136-145)
[2023-05-06] MEDS: Mometasone/Formoterol 200/5 60 PUFF INH SCH ×2 (07:45→19:37)
[2023-05-06] MEDS: Benzonatate 100 MG CAP PO SCH ×3 (08:10→20:14)
[2023-05-06] MEDS: Atenolol 25 MG TAB PO SCH ×2 (08:11→20:13)
[2023-05-06] MEDS: Aspirin Chewable 81 MG TAB PO SCH (08:11)
[2023-05-06] MEDS: Atorvastatin Calcium 10 MG TAB PO SCH (08:11)
[2023-05-06] MEDS: Cilostazol 100 MG TAB PO SCH ×2 (08:11→17:49)
[2023-05-06] MEDS: predniSONE 20 MG TAB PO SCH (08:11)
[2023-05-06] MEDS: Furosemide 40 MG/4 ML VIAL SLOW IVP SCH (08:11)
[2023-05-06] MEDS: Warfarin Sodium 2.5 MG TAB PO SCH (17:49)
[2023-05-06] MEDS: Mirtazapine 15 MG TAB PO SCH (20:14)
[2023-05-06] MEDS: Montelukast Sodium 10 mg Tablet PO SCH (20:14)
[2023-05-06] MEDS: Nicotine 14 MG PATCH TD SCH (23:29)
[2023-05-06] MEDS: Senokot S 8.6-50 MG TAB PO PRN (23:31)
[2023-05-07 05:18] LABS: #Monocytes 0.8 10x3/uL (0.0-1.1); #Neutrophils 10.8 10x3/uL (1.5-8.4); %Basophils 0.1 % (0.0-2.0); %Eosinophils 0.1 % (0.0-6.0); %Lymphocytes 9.1 % (18.0-47.0); %Monocytes 6.3 % (0.0-10.0); %Neutrophils 83.4 % (40.0-75.0); Hemoglobin 10.4 g/dL (12.0-15.5); Mean Corpuscular HGB CONC 31.9 g/dL (32.0-36.0); Mean Corpuscular Hemoglobin 29.7 pg (27.0-33.0); Mean Corpuscular Volume 93.1 fl (81.6-98.3); Platelet Count 315 10x3/uL (150-450); RBC Distribution Width 14.8 % (11.5-14.5); White Blood Cell (WBC) Count 12.9 10x3/uL (3.5-10.5)
[2023-05-07 05:28] LABS: INR-International Normal Ratio 1.9; Prothrombin Time 19.9 sec (9.5-12.1)
[2023-05-07 05:33] LABS: Anion Gap 13 mmol/L (10-20); BUN (Urea Nitrogen) 21 mg/dL (9.8-20.1); Calc. Creatinine Clearance 27 mL/min (70-130); Calcium 9.7 mg/dL (7.8-10.44); Carbon Dioxide 32 mmol/L (23-31); Chloride 101 mmol/L (98-107); Estimated GFR 51; Glucose 125 mg/dL (83-110); Potassium 3.5 mmol/L (3.5-5.1); Sodium 142 mmol/L (136-145)
[2023-05-07] MEDS: Cilostazol 100 MG TAB PO SCH ×2 (07:55→17:41)
[2023-05-07] MEDS: Atenolol 25 MG TAB PO SCH ×2 (07:56→21:35)
[2023-05-07] MEDS: Atorvastatin Calcium 10 MG TAB PO SCH (07:56)
[2023-05-07] MEDS: Aspirin Chewable 81 MG TAB PO SCH (07:56)
[2023-05-07] MEDS: Benzonatate 100 MG CAP PO SCH ×3 (07:57→21:36)
[2023-05-07] MEDS: Furosemide 40 MG/4 ML VIAL SLOW IVP SCH (07:57)
[2023-05-07] MEDS: Mometasone/Formoterol 200/5 60 PUFF INH SCH ×2 (10:00→19:58)
[2023-05-07] MEDS ORDERED: predniSONE 20 MG TAB PO SCH (14:15)
[2023-05-07] MEDS: Acetaminophen 325 MG TAB PO PRN (15:25)
[2023-05-07] MEDS ORDERED: Warfarin Sodium 5 MG TAB PO SCH (17:00)
[2023-05-07] MEDS: Montelukast Sodium 10 mg Tablet PO SCH (21:35)
[2023-05-07] MEDS: Mirtazapine 15 MG TAB PO SCH (21:36)
[2023-05-07] MEDS: Nicotine 14 MG PATCH TD SCH (21:36)
[2023-05-08 06:13] LABS: Prothrombin Time 21.1 sec (9.5-12.1)
[2023-05-08 06:19] LABS: Anion Gap 9 mmol/L (10-20); BUN (Urea Nitrogen) 21 mg/dL (9.8-20.1); Calc. Creatinine Clearance 30 mL/min (70-130); Calcium 9.5 mg/dL (7.8-10.44); Carbon Dioxide 36 mmol/L (23-31); Chloride 98 mmol/L (98-107); Estimated GFR 58; Glucose 120 mg/dL (83-110); Potassium 4.2 mmol/L (3.5-5.1); Sodium 139 mmol/L (136-145)
[2023-05-08] MEDS: Mometasone/Formoterol 200/5 60 PUFF INH SCH ×2 (06:25→20:21)
[2023-05-08] MEDS: Benzonatate 100 MG CAP PO SCH ×3 (09:16→22:03)
[2023-05-08] MEDS: Cilostazol 100 MG TAB PO SCH ×2 (09:16→16:30)
[2023-05-08] MEDS: Aspirin Chewable 81 MG TAB PO SCH (09:16)
[2023-05-08] MEDS: predniSONE 20 MG TAB PO SCH (09:16)
[2023-05-08] MEDS: Atenolol 25 MG TAB PO SCH ×2 (09:17→22:03)
[2023-05-08] MEDS: Atorvastatin Calcium 10 MG TAB PO SCH (09:17)
[2023-05-08] MEDS: Furosemide 40 MG/4 ML VIAL SLOW IVP SCH (09:18)
[2023-05-08] MEDS ORDERED: Warfarin Sodium 2 MG TAB PO SCH (17:00)
[2023-05-08] MEDS: Mirtazapine 15 MG TAB PO SCH (22:05)
[2023-05-08] MEDS: Montelukast Sodium 10 mg Tablet PO SCH (22:06)
[2023-05-08] MEDS: Nicotine 14 MG PATCH TD SCH (22:06)
[2023-05-09 05:11] LABS: INR-International Normal Ratio 2.4; Prothrombin Time 25.1 sec (9.5-12.1)
[2023-05-09 05:15] LABS: Anion Gap 12 mmol/L (10-20); BUN (Urea Nitrogen) 22 mg/dL (9.8-20.1); Calc. Creatinine Clearance 35 mL/min (70-130); Calcium 9.3 mg/dL (7.8-10.44); Carbon Dioxide 32 mmol/L (23-31); Chloride 99 mmol/L (98-107); Estimated GFR 69; Glucose 95 mg/dL (83-110); Potassium 3.5 mmol/L (3.5-5.1); Sodium 139 mmol/L (136-145)
[2023-05-09] MEDS: Mometasone/Formoterol 200/5 60 PUFF INH SCH (06:30)
[2023-05-09] MEDS ORDERED: Furosemide 40 MG TAB PO SCH (07:30)
[2023-05-09] MEDS: Aspirin Chewable 81 MG TAB PO SCH (08:27)
[2023-05-09] MEDS: Atorvastatin Calcium 10 MG TAB PO SCH (08:27)
[2023-05-09] MEDS: Atenolol 25 MG TAB PO SCH (08:28)
[2023-05-09] MEDS: Benzonatate 100 MG CAP PO SCH (08:28)
[2023-05-09] MEDS: Cilostazol 100 MG TAB PO SCH (08:28)
[2023-05-09] MEDS: predniSONE 20 MG TAB PO SCH (08:29)
[2023-05-09 12:09] VITALS: BP 109/59; TEMP 98
== END 2023-05-09 12:59 | disposition home or self-care (01) | DRG 193 ==
LOC: CSHTELE 22:07 → INTOOBSV 22:07 → OBSVTOIN 04-29 23:41
PROVIDERS: ADMIT Student in an Organized Health Care Education/Training Program; ATTEND Internal Medicine
DX: J12.3 Human metapneumovirus pneumonia (principal); A41.89 Other specified sepsis; I21.A1 Myocardial infarction type 2; J96.01 Acute respiratory failure with hypoxia; I50.33 Acute on chronic diastolic (congestive) heart failure; J44.1 Chronic obstructive pulmonary disease with (acute) exacerbation; J44.0 Chronic obstructive pulmonary disease with (acute) lower respiratory infection; I42.2 Other hypertrophic cardiomyopathy; I48.20 Chronic atrial fibrillation, unspecified; R64 Cachexia; E87.1 Hypo-osmolality and hyponatremia; Z68.1 Body mass index [BMI] 19.9 or less, adult; F17.210 Nicotine dependence, cigarettes, uncomplicated; Z20.822 Contact with and (suspected) exposure to COVID-19; E87.6 Hypokalemia; K21.9 Gastro-esophageal reflux disease without esophagitis; D53.9 Nutritional anemia, unspecified; E78.5 Hyperlipidemia, unspecified; I25.10 Atherosclerotic heart disease of native coronary artery without angina pectoris; I73.9 Peripheral vascular disease, unspecified; Z79.82 Long term (current) use of aspirin; Z79.899 Other long term (current) drug therapy; Z95.5 Presence of coronary angioplasty implant and graft; Z79.01 Long term (current) use of anticoagulants; Z79.52 Long term (current) use of systemic steroids; Z88.0 Allergy status to penicillin; Z85.038 Personal history of other malignant neoplasm of large intestine; Z90.710 Acquired absence of both cervix and uterus; Z82.49 Family history of ischemic heart disease and other diseases of the circulatory system; I11.0 Hypertensive heart disease with heart failure; Z90.49 Acquired absence of other specified parts of digestive tract; Z92.21 Personal history of antineoplastic chemotherapy
CPT/HCPCS: 36415; 36416; 71045; 71260; 80048; 82553; 83735; 84145; 84439; 84443; 84484; 85025; 85610; 85652; 85730; 86140; 87070; 87086; 87205; 87449; 87633; 87899; 93005; 93010; 94640; 94664; 94667; 94668; 94669; 94760; 94762; 96374; 96375; 96376; G0378; J0456; J0696; J1160; J1940; J1956; J2920; J2930; J3475; J3490; J7050; J7512; J7620; Q9967

== ENCOUNTER 2024-11-07 20:21 | Inpatient (IN) | payer MEDICARE ==
[2024-11-07 23:39] VITALS: BMI 14.8
[2024-11-08] MEDS ORDERED: cefTRIAXone Sodium 2,000 MG in Syringe 0 ML IVPB SCH (01:00)
[2024-11-08] MEDS: Ipratropium/Albuterol 3 ML NEB NEB SCH (01:15)
[2024-11-08] MEDS: Nicotine 14 MG PATCH TD SCH (01:52)
[2024-11-08] MEDS: cefTRIAXone\\ROCEPHIN 2 GM in Sodium Chloride 0.9% 100 ML IVPB SCH (01:52)
[2024-11-08] MEDS: Sodium Chloride 0.9% 500 ML IV SCH (01:52)
[2024-11-08] MEDS: Potassium Chloride 20 MEQ TAB PO SCH (01:52)
[2024-11-08 03:22] LABS: #Basophils 0.03 10x3/uL (0.0-0.2); #Eosinophils 0.06 10x3/uL (0.0-0.5); #Neutrophils 10.65 10x3/uL (1.5-8.4); %Basophils 0.2 % (0.0-2.0); %Eosinophils 0.5 % (0.0-6.0); %Lymphocytes 8.2 % (18.0-47.0); %Neutrophils 83.2 % (40.0-75.0); Hematocrit 28.7 % (34.9-44.5); Hemoglobin 9.8 g/dL (12.0-15.5); Mean Corpuscular HGB CONC 34.1 g/dL (32.0-36.0); Mean Corpuscular Hemoglobin 30.3 pg (27.0-33.0); Mean Corpuscular Volume 88.9 fL (81.6-98.3); Mean Platelet Volume 10.4 fL (7.4-10.4); Platelet Count 288 10x3/uL (150-450); RBC Distribution Width 14.2 % (11.5-14.5); Red Blood Cell (RBC) Count 3.23 10x6/uL (3.90-5.03); White Blood Cell (WBC) Count 12.8 10x3/uL (3.5-10.5)
[2024-11-08 03:42] LABS: Anion Gap 12 mmol/L (10-20); BUN (Urea Nitrogen) 19 mg/dL (9.8-20.1); Calc. Creatinine Clearance 27 mL/min (70-130); Calcium 10.1 mg/dL (7.8-10.44); Carbon Dioxide 26 mmol/L (23-31); Chloride 103 mmol/L (98-107); Estimated GFR 60; Glucose 126 mg/dL (83-110); INR-International Normal Ratio 4.3; Magnesium 1.5 mg/dL (1.6-2.6); PTT 54.3 sec (22.0-33.0); Potassium 4.1 mmol/L (3.5-5.1); Prothrombin Time 42.6 sec (9.5-12.1); Sodium 137 mmol/L (136-145)
[2024-11-08] MEDS: Magnesium 2 GM/50 ML(in water) 2 GM in Premix 1 BAG IVPB SCH ×3 (04:55→21:59)
[2024-11-08] MEDS: Arformoterol 15 MCG/2 ML NEB NEB SCH (07:49)
[2024-11-08] MEDS: Furosemide 20 MG TAB PO SCH (08:34)
[2024-11-08] MEDS: Atenolol 25 MG TAB PO SCH (08:34)
[2024-11-08] MEDS: Cilostazol 100 MG TAB PO SCH (08:34)
[2024-11-08] MEDS: dilTIAZem CD 180 MG CAP PO SCH (08:35)
[2024-11-08] MEDS: Aspirin Chewable 81 MG TAB PO SCH (08:35)
[2024-11-08] MEDS: Pantoprazole 40 MG DR.TAB PO SCH (08:35)
[2024-11-08] MEDS ORDERED: Warfarin Sodium 5 MG TAB PO SCH (09:00)
[2024-11-08] MEDS: Atorvastatin Calcium 10 MG TAB PO SCH (09:24)
[2024-11-08 13:27] VITALS: BMI 14.8
[2024-11-08] MEDS ORDERED: Polyethylene Glycol 3350 17 GM Packet PO PRN (14:56)
[2024-11-08] MEDS: Ipratropium/Albuterol 3 ML NEB ONE (15:09)
[2024-11-08] MEDS ORDERED: Ipratropium/Albuterol 3 ML NEB NEB PRN (18:30)
[2024-11-08] MEDS: Mometasone 200 MCG/Formoterol 5 MCG 60 PUFF INHALER INH SCH (19:44)
[2024-11-08] MEDS ORDERED: Electrolyte Replacement Protocol 1 EACH FS SCH (19:45)
[2024-11-08] MEDS: Electrolyte Replacement Protocol 1 EACH FS ONE (20:17)
[2024-11-08] MEDS: Mirtazapine 15 MG TAB PO SCH (22:00)
[2024-11-08] MEDS: Senokot S 8.6-50 MG TAB PO SCH (22:00)
[2024-11-08] MEDS: Doxycycline 100 MG CAP PO SCH (22:00)
[2024-11-08] MEDS: guaiFENesin ER 600 MG TAB PO SCH (22:00)
[2024-11-08] MEDS: Montelukast Sodium 10 mg Tablet PO SCH (22:00)
[2024-11-09 03:50] LABS: #Basophils 0.04 10x3/uL (0.0-0.2); #Eosinophils 0.08 10x3/uL (0.0-0.5); #Monocytes 0.77 10x3/uL (0.0-1.1); #Neutrophils 6.89 10x3/uL (1.5-8.4); %Basophils 0.4 % (0.0-2.0); %Eosinophils 0.9 % (0.0-6.0); %Lymphocytes 14.7 % (18.0-47.0); %Monocytes 8.3 % (0.0-10.0); %Neutrophils 74.1 % (40.0-75.0); Hematocrit 30.3 % (34.9-44.5); Hemoglobin 10.2 g/dL (12.0-15.5); Mean Corpuscular HGB CONC 33.7 g/dL (32.0-36.0); Mean Corpuscular Hemoglobin 29.8 pg (27.0-33.0); Mean Corpuscular Volume 88.6 fL (81.6-98.3); Mean Platelet Volume 9.9 fL (7.4-10.4); Platelet Count 361 10x3/uL (150-450); RBC Distribution Width 14.6 % (11.5-14.5); Red Blood Cell (RBC) Count 3.42 10x6/uL (3.90-5.03); White Blood Cell (WBC) Count 9.3 10x3/uL (3.5-10.5)
[2024-11-09 04:00] LABS: Anion Gap 14 mmol/L (10-20); BUN (Urea Nitrogen) 14 mg/dL (9.8-20.1); Calc. Creatinine Clearance 32 mL/min (70-130); Calcium 10.5 mg/dL (7.8-10.44); Carbon Dioxide 25 mmol/L (23-31); Chloride 104 mmol/L (98-107); Estimated GFR 74; Glucose 102 mg/dL (83-110); Magnesium 2.6 mg/dL (1.6-2.6); Potassium 3.6 mmol/L (3.5-5.1); Sodium 139 mmol/L (136-145)
[2024-11-09 04:04] LABS: INR-International Normal Ratio 4.5
[2024-11-09] MEDS ORDERED: LevoFLOXacin 500 mg/D5W 500 MG in Premix 1 BAG IVPB SCH (15:30)
[2024-11-10 04:03] LABS: Prothrombin Time 30.8 sec (9.5-12.1)
[2024-11-10] MEDS: Pantoprazole 40 MG DR.TAB PO SCH (17:38)
[2024-11-10] MEDS: Warfarin Sodium 2.5 MG TAB PO SCH (17:38)
[2024-11-10] MEDS: Acetaminophen 325 MG TAB PO PRN (20:28)
[2024-11-11 04:21] LABS: INR-International Normal Ratio 2.6; Prothrombin Time 26.5 sec (9.5-12.1)
[2024-11-11 04:22] LABS: #Basophils 0.02 10x3/uL (0.0-0.2); #Eosinophils 0.16 10x3/uL (0.0-0.5); #Neutrophils 5.13 10x3/uL (1.5-8.4); %Basophils 0.3 % (0.0-2.0); %Eosinophils 2.1 % (0.0-6.0); %Lymphocytes 15.7 % (18.0-47.0); %Monocytes 14.1 % (0.0-10.0); %Neutrophils 65.9 % (40.0-75.0); Hematocrit 29.1 % (34.9-44.5); Hemoglobin 9.2 g/dL (12.0-15.5); Mean Corpuscular HGB CONC 31.6 g/dL (32.0-36.0); Mean Corpuscular Hemoglobin 28.9 pg (27.0-33.0); Mean Corpuscular Volume 91.5 fL (81.6-98.3); Mean Platelet Volume 9.7 fL (7.4-10.4); Platelet Count 390 10x3/uL (150-450); RBC Distribution Width 14.9 % (11.5-14.5); Red Blood Cell (RBC) Count 3.18 10x6/uL (3.90-5.03); White Blood Cell (WBC) Count 7.8 10x3/uL (3.5-10.5)
[2024-11-11 04:30] LABS: Anion Gap 11 mmol/L (10-20); BUN (Urea Nitrogen) 10 mg/dL (9.8-20.1); Calc. Creatinine Clearance 34 mL/min (70-130); Calcium 9.3 mg/dL (7.8-10.44); Carbon Dioxide 25 mmol/L (23-31); Chloride 108 mmol/L (98-107); Estimated GFR 80; Glucose 133 mg/dL (83-110); Potassium 3.5 mmol/L (3.5-5.1); Sodium 140 mmol/L (136-145)
[2024-11-11] MEDS: Potassium Chloride 20 MEQ TAB PO SCH (10:19)
[2024-11-11 12:38] LABS: Potassium 3.3 mmol/L (3.5-5.1)
[2024-11-12 05:25] LABS: INR-International Normal Ratio 2.6; Potassium 3.7 mmol/L (3.5-5.1); Prothrombin Time 26.6 sec (9.5-12.1)
[2024-11-13 04:53] LABS: Prothrombin Time 20.9 sec (9.5-12.1)
[2024-11-13 11:51] VITALS: BP 126/66; TEMP 98
[2024-11-13] MEDS ORDERED: Warfarin Sodium 5 MG TAB PO SCH (17:00)
== END 2024-11-13 13:19 | disposition home or self-care (01) | DRG 193 ==
LOC: CSHTELE 22:36 → UNDOADMIN 22:36 → CSHTELE 11-08 00:53
PROVIDERS: ADMIT Internal Medicine; ATTEND Hospitalist
DX: J18.9 Pneumonia, unspecified organism (principal); E43 Unspecified severe protein-calorie malnutrition; J96.01 Acute respiratory failure with hypoxia; J44.0 Chronic obstructive pulmonary disease with (acute) lower respiratory infection; J44.1 Chronic obstructive pulmonary disease with (acute) exacerbation; I48.20 Chronic atrial fibrillation, unspecified; I50.32 Chronic diastolic (congestive) heart failure; I42.2 Other hypertrophic cardiomyopathy; Z68.1 Body mass index [BMI] 19.9 or less, adult; N18.9 Chronic kidney disease, unspecified; F17.210 Nicotine dependence, cigarettes, uncomplicated; E87.6 Hypokalemia; I25.10 Atherosclerotic heart disease of native coronary artery without angina pectoris; K21.9 Gastro-esophageal reflux disease without esophagitis; I71.20 Thoracic aortic aneurysm, without rupture, unspecified; Z66 Do not resuscitate; Z79.899 Other long term (current) drug therapy; E83.42 Hypomagnesemia; Z79.82 Long term (current) use of aspirin; Z90.710 Acquired absence of both cervix and uterus
CPT/HCPCS: 36415; 36416; 71045; 71046; 80048; 83735; 84100; 84132; 84145; 85025; 85610; 85730; 87070; 87205; 87633; 93306; 94640; 94667; 94668; 94760; 94762; J0696; J3475; J7030; J7620